=== PATIENT | female | born 1995 | race Caucasian/White ===

== ENCOUNTER → 2022-01-23 11:22 | Observation (INO) ==
[2022-01-23 10:19] LABS: Basophils % 0.1 %; Eosinophils % 0.5 %; Hemoglobin 12.5 g/dL (11.5-15.4); Immature Granulocytes % 0.2 % (0-4); Lymphocytes # 1.2 K/mcL (0.6-4.6); Lymphocytes % 13.7 %; Mean Corpuscular HGB Conc 34.7 g/dL (31.6-35.5); Mean Corpuscular Hemoglobin 34.3 pg (28.0-33.3); Mean Corpuscular Volume 98.9 fL (83.0-100.0); Mean Platelet Volume 10.3 fL (9.4-12.4); Monocytes # 0.5 K/mcL (0.0-1.3); Monocytes % 5.5 %; Neutrophils # 6.8 K/mcL (1.6-8.9); Platelet Count 226 K/mcL (140-400); Red Blood Count 3.64 M/mcL (3.82-4.97); Red Cell Distribution Width 12.8 % (11.5-14.5); White Blood Count 8.5 K/mcL (4.3-11.1)
[2022-01-23 10:26] LABS: Bacteria,Urine Few per hpf (None-Few); Bilirubin,Urine Negative (Negative); Blood,Urine Negative (Negative); Clarity,Urine Clear (Clear); Color,Urine Colorless (Yellow); Glucose,Urine (UA) Normal (Normal); Ketones,Urine Negative (Negative); Leukocyte Esterase,Urine Large (Negative); Mucus,Urine Few per lpf (None-Few); Nitrite,Urine Negative (Negative); Protein,Urine Negative (Neg-Trace); RBC,Urine 0-3 per hpf (0-3); Specific Gravity,Urine 1.006 (1.010-1.025); Squamous Epithelial Cell,Urine Moderate per hpf (None-Few); Urobilinogen,Urine Normal (Normal)
[2022-01-23 10:28] LABS: Protein/Creatinine Ratio,Urine 0.21 mg/mg (0.00-0.20)
[2022-01-23 10:42] LABS: Alanine Aminotransferase 15 Units/L (7-52); Aspartate Amino Transferase 14 Units/L (13-39); BUN/Creatinine Ratio 10 (6-26); Blood Urea Nitrogen 6 mg/dL (6-20); Uric Acid 5.7 mg/dL (2.3-7.6); eGFR For African Americans > 60 (> 60); eGFR For Non-African Americans > 60 (> 60)
[2022-01-23 10:44] LABS: Lactate Dehydrogenase 135 Units/L (140-271)
== END | disposition home or self-care (01) ==
LOC: 1NENULAB
PROVIDERS: ADMIT Obstetrics & Gynecology; ATTEND Obstetrics & Gynecology

== ENCOUNTER → 2022-01-24 22:02 | Observation (INO) ==
[2022-01-24 21:29] LABS: Basophils % 0.2 %; Eosinophils # 0.1 K/mcL (0.0-0.6); Eosinophils % 0.9 %; Hematocrit 38.3 % (35.3-44.9); Immature Granulocytes % 0.4 % (0-4); Lymphocytes # 1.9 K/mcL (0.6-4.6); Lymphocytes % 18.5 %; Mean Corpuscular HGB Conc 33.9 g/dL (31.6-35.5); Mean Corpuscular Hemoglobin 33.8 pg (28.0-33.3); Mean Corpuscular Volume 99.5 fL (83.0-100.0); Mean Platelet Volume 10.3 fL (9.4-12.4); Monocytes # 0.7 K/mcL (0.0-1.3); Monocytes % 6.9 %; Neutrophils # 7.5 K/mcL (1.6-8.9); Platelet Count 244 K/mcL (140-400); Red Blood Count 3.85 M/mcL (3.82-4.97); Red Cell Distribution Width 13.1 % (11.5-14.5); Segmented Neutrophils % 73.1 %; White Blood Count 10.3 K/mcL (4.3-11.1)
[2022-01-24 21:49] LABS: Alanine Aminotransferase 15 Units/L (7-52); Aspartate Amino Transferase 14 Units/L (13-39); BUN/Creatinine Ratio 12 (6-26); Blood Urea Nitrogen 7 mg/dL (6-20); Lactate Dehydrogenase 136 Units/L (140-271); Uric Acid 5.2 mg/dL (2.3-7.6); eGFR For African Americans > 60 (> 60); eGFR For Non-African Americans > 60 (> 60)
== END | disposition home or self-care (01) ==
LOC: 1NENULAB
PROVIDERS: ADMIT Obstetrics & Gynecology; ATTEND Obstetrics & Gynecology

== ENCOUNTER 2022-02-28 20:00 | Inpatient (IN) ==
[2022-02-28] MEDS ORDERED: Azithromycin 500 MG in 0.9 % Sodium Chloride 250 ML IVPB PRN (21:46)
[2022-02-28] MEDS ORDERED: Famotidine 20 MG/2 ML VIAL IVP PRN (21:46)
[2022-02-28] MEDS ORDERED: Naloxone 0.4 MG/ML INJ IVP PRN (21:46)
[2022-02-28] MEDS ORDERED: Ondansetron 4 MG/2 ML VIAL IVP PRN (21:46)
[2022-02-28] MEDS ORDERED: Metoclopramide 10 MG/2 ML VIAL IVP PRN (21:46)
[2022-02-28] MEDS ORDERED: Lidocaine 1% 20 ML MDV INFILT PRN (21:46)
[2022-02-28] MEDS ORDERED: *HR* Nalbuphine 10 MG/ML AMPUL IV PRN (21:46)
[2022-02-28 22:30] LABS: Amphetamine Screen,Urine Negative ng/mL (Cutoff=1000); Barbiturate Screen,Urine Negative ng/mL (Cutoff=200); Benzodiazepines Screen,Urine Negative ng/mL (Cutoff=200); Cannabinoid Screen,Urine Negative ng/mL (Cutoff = 50); Cocaine Screen,Urine Negative ng/mL (Cutoff= 300); Creatinine,Urine 287 mg/dL; Opiate Screen,Urine Negative ng/mL (Cutoff=300); Phencyclidine Screen,Urine Negative ng/mL (Cutoff=25); Protein/Creatinine Ratio,Urine 0.12 mg/mg (0.00-0.20)
[2022-02-28 22:36] LABS: Basophils % 0.3 %; Eosinophils # 0.1 K/mcL (0.0-0.6); Eosinophils % 0.6 %; Hematocrit 37.5 % (35.3-44.9); Hemoglobin 12.9 g/dL (11.5-15.4); Immature Granulocytes % 0.3 % (0-4); Lymphocytes # 1.8 K/mcL (0.6-4.6); Lymphocytes % 17.7 %; Mean Corpuscular HGB Conc 34.4 g/dL (31.6-35.5); Mean Corpuscular Hemoglobin 33.7 pg (28.0-33.3); Mean Corpuscular Volume 97.9 fL (83.0-100.0); Mean Platelet Volume 11.1 fL (9.4-12.4); Monocytes # 0.6 K/mcL (0.0-1.3); Monocytes % 5.9 %; Neutrophils # 7.7 K/mcL (1.6-8.9); Platelet Count 251 K/mcL (140-400); Red Blood Count 3.83 M/mcL (3.82-4.97); Red Cell Distribution Width 12.9 % (11.5-14.5); Segmented Neutrophils % 75.2 %; White Blood Count 10.2 K/mcL (4.3-11.1)
[2022-02-28] MEDS ORDERED: EPHEDrine 50 MG/ML VIAL IVP PRN (23:31)
[2022-02-28 23:33] LABS: Alanine Aminotransferase 21 Units/L (7-52); Aspartate Amino Transferase 21 Units/L (13-39); BUN/Creatinine Ratio 14 (6-26); Blood Urea Nitrogen 12 mg/dL (6-20); Lactate Dehydrogenase 133 Units/L (140-271); Uric Acid 6.9 mg/dL (2.3-7.6); eGFR For African Americans > 60 (> 60); eGFR For Non-African Americans > 60 (> 60)
[2022-02-28] MEDS ORDERED: Epidural Premix (fent/bupiv) 110 ML EP SCH (23:45)
[2022-03-01] MEDS: miSOPROStoL 25 MCG TABLET PO PRN ×2 (00:06→04:54)
[2022-03-01] MEDS ORDERED: *HR* FentaNYL (PF) 100 MCG/2 ML VIAL EP ONE (07:31)
[2022-03-01] MEDS ORDERED: Ropivacaine/PF 0.2% 20 ML VIAL EP ONE (07:31)
[2022-03-01] MEDS: Oxytocin 30 UNIT/503 ML BAG IVC SCH ×2 (09:28→21:37)
[2022-03-01] MEDS ORDERED: *HR* FentaNYL (PF) 100 MCG/2 ML VIAL ONE (13:36)
[2022-03-01] MEDS ORDERED: Ropivacaine/PF 0.2% 20 ML VIAL ONE (13:37)
[2022-03-01] MEDS: Ringers Solution, Lactated 1,000 ML IVC SCH ×2 (13:41→15:09)
[2022-03-01] MEDS ORDERED: 0.9 % Sodium Chloride 500 ML ONE (16:01)
[2022-03-01] MEDS ORDERED: Methylergonovine 0.2 MG/ML AMPUL IM ONE ×2 (17:16→17:39)
[2022-03-01] MEDS ORDERED: Measles/Mumps/Rubella Vacc 0.5 ML VIAL SQ PRN (19:18)
[2022-03-01] MEDS ORDERED: Ondansetron ODT 4 MG TAB.RAPDIS SL PRN (19:18)
[2022-03-01] MEDS ORDERED: OXYTOCIN/RINGERS LACTATE 10 UNIT/166.6 ML BAG IVC ONE (19:18)
[2022-03-01] MEDS ORDERED: Benzocaine/Menthol 56 GM AEROSOL SPRAY TP PRN (19:18)
[2022-03-01] MEDS ORDERED: Rho Immune Globulin 1,500 UNIT SYRINGE IM PRN (19:18)
[2022-03-01] MEDS ORDERED: Lanolin 7 G OINT...G. TP PRN (19:18)
[2022-03-01] MEDS: Acetaminophen 325 MG TABLET PO SCH (21:14)
[2022-03-01] MEDS: Ibuprofen 600 MG TABLET PO SCH (21:14)
[2022-03-02 03:34] LABS: Basophils % 0.1 %; Eosinophils # 0.1 K/mcL (0.0-0.6); Eosinophils % 0.5 %; Hematocrit 34.3 % (35.3-44.9); Hemoglobin 11.7 g/dL (11.5-15.4); Immature Granulocytes % 0.4 % (0-4); Lymphocytes # 1.6 K/mcL (0.6-4.6); Lymphocytes % 11.8 %; Mean Corpuscular HGB Conc 34.1 g/dL (31.6-35.5); Mean Corpuscular Hemoglobin 33.8 pg (28.0-33.3); Mean Corpuscular Volume 99.1 fL (83.0-100.0); Mean Platelet Volume 10.6 fL (9.4-12.4); Monocytes # 0.9 K/mcL (0.0-1.3); Monocytes % 6.5 %; Neutrophils # 10.8 K/mcL (1.6-8.9); Platelet Count 181 K/mcL (140-400); Red Blood Count 3.46 M/mcL (3.82-4.97); Segmented Neutrophils % 80.7 %; White Blood Count 13.4 K/mcL (4.3-11.1)
[2022-03-02] MEDS: Ibuprofen 600 MG TABLET PO SCH ×3 (04:03→16:02)
[2022-03-02] MEDS: Acetaminophen 325 MG TABLET PO SCH ×3 (04:03→16:02)
[2022-03-02 04:30] VITALS: TEMP 98.2
[2022-03-02 08:35] VITALS: BP 130/85; PULSE 106; O2SAT 96
[2022-03-02] MEDS ORDERED: Prenatal Vit/FA 1 EACH TABLET PO SCH (09:00)
== END 2022-03-02 18:50 | disposition home or self-care (01) | DRG 805 ==
LOC: 1NENULAB 21:42 → 1NENUOBS 03-01 19:50
PROVIDERS: ADMIT Student in an Organized Health Care Education/Training Program; ATTEND Student in an Organized Health Care Education/Training Program